=== PATIENT | male | born 2005 | race Caucasian/White ===

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

== ENCOUNTER 2024-05-02 06:23 | Inpatient (IN) | payer OTHER ==
[~2024-05-02] VITALS: Ht 165.1 cm; Wt 47.0 kg
[~2024-05-02 06:23] MED LIST changes: +AMOCLA875 PO; +STELARA90 MG/1 ML SQ
[2024-05-02 09:18] LABS: BASOPHILS ABSOLUTE AUTO 0.01 K/mm3 (0.00-0.23); BASOPHILS PERCENT AUTO 0 % (0-2); EOSINOPHILS ABSOLUTE AUTO 0.12 K/mm3 (0.00-0.68); EOSINOPHILS PERCENT AUTO 1 % (0-6); Hematocrit 28.5 % (37.0-53.0); Hemoglobin 8.6 g/dL (13.5-17.5); IMMATURE GRAN ABSOLUTE AUTO 0.09 K/mm3 (0.00-0.10); IMMATURE GRAN PERCENT AUTO 1 % (0-1); LYMPHOCYTES ABSOLUTE AUTO 0.33 K/mm3 (0.84-5.20); LYMPHOCYTES PERCENT AUTO 4 % (21-46); MONOCYTES ABSOLUTE AUTO 0.98 K/mm3 (0.16-1.47); MONOCYTES PERCENT AUTO 11 % (4-13); Mean Corpuscular HGB 19.3 pg (26.0-34.0); Mean Corpuscular HGB Conc 30.2 g/dL (31.5-36.5); Mean Corpuscular Volume 64 fL (80-100); Mean Platelet Volume 8.2 fL (9.1-12.4); NEUTROPHILS ABSOLUTE AUTO 7.66 K/mm3 (1.96-9.15); NEUTROPHILS PERCENT AUTO 83 % (41-73); Platelet Count 349 K/mm3 (150-400); RDW Coefficient Variation 19.1 % (11.7-14.2); RDW Standard Deviation 42.3 fL (35.1-46.3); Red Blood Cell Count 4.46 M/mm3 (4.30-5.90); White Blood Cell Count 9.19 K/mm3 (4.00-11.30)
[2024-05-02] MEDS ORDERED: MetroNIDAZOLE 500MG/NS 100 ml 100 ML IV ONE (09:20)
[2024-05-02] MEDS ORDERED: CefTRIAXone Sodium 1,000 MG in NS 100 ML IV ONE (09:20)
[2024-05-02 09:40] LABS: Albumin, Blood 1.8 g/dL (3.4-5.0); Albumin/Globulin Ratio 0.4 (0.8-1.8); Bilirubin, Total 0.3 mg/dL (0.1-1.0); Bun/Creatinine Ratio 15.9 (12.0-20.0); Calcium, Blood 7.8 mg/dL (8.5-10.1); Creatinine, Blood 0.5 mg/dL (0.60-1.20); Globulin, Blood 4.9 g/dL (2.2-4.0); Potassium, Blood 3.2 mmol/L (3.5-5.5); Total Protein, Blood 6.7 g/dL (6.4-8.2)
[2024-05-02 11:01] LABS: Chlamydia Trachomatis Urine NOT DETECTED (NOT DETECT); Neisseria Gonorrhoea Urine NOT DETECTED (NOT DETECT)
[2024-05-02] MEDS ORDERED: Ondansetron HCl 2 MG / ML 2ML Vial IV ONE (11:05)
[2024-05-02] MEDS ORDERED: HYDROmorphone HCl/Pf 1MG SYR IV ONE (11:05)
[2024-05-02] MEDS ORDERED: FLU VACC TS2024-25(6MOS UP)/PF 45 MCG/0.5 ML SYRINGE IM SCH (13:20)
[2024-05-02] MEDS ORDERED: OxyCODONE HCL 5 MG TAB PO PRN ×2 (14:25→20:00)
[2024-05-02] MEDS ORDERED: Acetaminophen 500 MG Tab PO PRN (14:25)
[2024-05-02] MEDS ORDERED: NS 250 ML IV PRN (14:55)
[2024-05-02] MEDS ORDERED: Piperacillin/Tazobactam Sod 3.375 GM in NS 100 ML IV SCH ×2 (15:00→22:30)
[2024-05-02 15:25] VITALS: BP 116/80
--- NOTE | 2024-05-02 15:57 | NUR ---
ARRIVAL PT ARRIVED TO UNIT FROM ER VIA WHEELCHAIR. ABLE TO STAND AND TRANSFER TO BED. AMBULATES TO RESTROOM. PT REPORTS PAIN WITH URINATION PRIMARILY ON LEFT SIDE OF SCROTUM AND PAIN WITH STANDING THAT DECREASES ONCE LAYING DOWN. SCROTUM RED ON ASSESSMENT WITH LARGE LUMP IN THE MIDDLE BETWEEN TESTICLES. VERY PAINFUL TO TOUCH. NO OPEN WOUNDS OR SORES SEEN. PT HAS A PEG TUBE TO RUQ, PT STATES HE DOES TUBE FEEDS REGULARILY BUT MANAGES HIMSELF AND WILL SKIP OCCASIONALY. LUNGS CLEAR T/O. NO SOB OR CP. DENIES ANY OTHER COMPLAINTS BESIDES THE CELLULITUS. IV ABX INFUSING PER EMAR.
--- NOTE | 2024-05-02 17:27 | NUR ---
NO ACUTE CHANGES SINCE ARRIVAL TO UNIT PT TOLERATING SOME PO INTAKE. PAINFUL WITH STANDING AND SOME URINATION BUT PAIN RECEDES AND PT REPORTS PAIN TOLERABLE. IV ABX INFUSING PER EMAR. RESTING IN BED.
[2024-05-02 19:20] VITALS: BP 103/65
[2024-05-02] MEDS ORDERED: FentaNYL Citrate 50 MCG/ML 2 ML Injection IV PRN (20:00)
[2024-05-02] MEDS ORDERED: Lactobacil 2-S.Thermo-Bifido 1 1 Cap PO SCH (21:00)
--- NOTE | 2024-05-03 04:48 | NUR ---
NOC SUMMARY- PT PAIN MANAGED WELL. PT SWELLING HAS NOT CHANGED. PT ABLE TO SLEEP. PT DID WAKE UP SOAKED WITH SWEAT. PT WAS FOUND TO BE AFEBRILE. PT REPORTS THAT HE SWEATS WHEN HE TAKES TYLENOL. PT IS VOIDING WITH SOME DISCOMFORT. PT CURRENTLY SLEEPING IN NO DISTRESS. CALL LIGHT IN REACH.
--- NOTE | 2024-05-03 04:51 | NUR ---
0500- NO DRAINAGE NOTED FROM GROIN.
[2024-05-03 05:30] VITALS: BP 105/68
[2024-05-03 05:51] LABS: Hematocrit 30.7 % (37.0-53.0); Hemoglobin 8.7 g/dL (13.5-17.5); Mean Corpuscular HGB 18.9 pg (26.0-34.0); Mean Corpuscular HGB Conc 28.3 g/dL (31.5-36.5); Mean Corpuscular Volume 67 fL (80-100); Mean Platelet Volume 8.5 fL (9.1-12.4); Platelet Count 346 K/mm3 (150-400); RDW Coefficient Variation 19.6 % (11.7-14.2); RDW Standard Deviation 45.6 fL (35.1-46.3); White Blood Cell Count 8.81 K/mm3 (4.00-11.30)
[2024-05-03 06:12] LABS: International Normalized Ratio 1.09; Prothrombin Time Results 11.6 Sec (9.7-11.5)
[2024-05-03 06:24] LABS: BAND PERCENT MAN 33 % (0-8); BASOPHILS PERCENT MAN 0 % (0-2); EOSINOPHILS ABSOLUTE MAN 0.26 K/mm3 (0.00-0.68); EOSINOPHILS PERCENT MAN 3 % (0-6); LYMPHOCYTES ABSOLUTE MAN 0.17 K/mm3 (0.84-5.20); LYMPHOCYTES PERCENT MAN 2 % (21-46); METAMYELOCYTE ABSOLUTE MAN 0.08 K/mm3 (0.00-0.00); METAMYELOCYTE PERCENT MAN 1 % (0-0); MONOCYTES PERCENT MAN 8 % (4-13); MYELOCYTE ABSOLUTE MAN 0.08 K/mm3 (0.00-0.00); MYELOCYTE PERCENT MAN 1 % (0-0); NEUTROPHILS ABSOLUTE MAN 7.48 K/mm3 (1.96-9.15); SEG NEUTROPHILS PERCENT MAN 52 % (41-73); TOTAL CELLS COUNTED 100
[2024-05-03 06:26] LABS: Albumin, Blood 1.8 g/dL (3.4-5.0); Albumin/Globulin Ratio 0.3 (0.8-1.8); Bilirubin, Total 0.3 mg/dL (0.1-1.0); Bun/Creatinine Ratio 9.3 (12.0-20.0); Calcium, Blood 8.6 mg/dL (8.5-10.1); Creatinine, Blood 0.54 mg/dL (0.60-1.20); Globulin, Blood 5.2 g/dL (2.2-4.0); Magnesium, Blood 2.2 mg/dL (1.6-2.4); Phosphorus, Blood 4.5 mg/dL (2.5-4.9); Potassium, Blood 3.2 mmol/L (3.5-5.5)
[2024-05-03 07:49] VITALS: BP 100/58
[2024-05-03] MEDS ORDERED: Enoxaparin 40 MG/0.4 ML SYR SC SCH (09:00)
[2024-05-03] MEDS ORDERED: Potassium Chloride 20 MEQ/15 ML UDC PT ONE (14:00)
[2024-05-03] MEDS ORDERED: Magnesium Hydroxide Conc 10 ML UDC PT PRN (14:15)
[2024-05-03] MEDS ORDERED: Docusate Sodium Liquid 100 MG UDC PT PRN (14:15)
[2024-05-03] MEDS ORDERED: Bisacodyl 10 MG Supp PR PRN (14:15)
[2024-05-03 14:47] VITALS: BP 107/67
--- NOTE | 2024-05-03 15:28 | NUR ---
PT's FAMILY TO BRING IN GI FEEDING SUPPLIES.
--- NOTE | 2024-05-03 19:46 | NUR ---
SHIFT SUMMARY FAMILY BROUGHT IN HOME TUBE FEEDING SUPPLIES, INCLUDING PUMP BUT HAS NOT SET UP THE INFUSION. STATES NO INTEREST HE IS EATING FOOD. GROIN/TESTES UNCHANGED FROM BEGINNING OF SHIFT. MIDDAY REPORTED BLOODY OUTPUT AFTER PASSING GAS, TESTES ASSESSED & NO OPEN AREAS NOTED. DISCUSSED w/ HIM & RE STATED THAT HE HAS RECTAL BLEEDING AT X's R/T CROHNS.
[2024-05-03 20:54] VITALS: BP 113/78
[2024-05-03] MEDS ORDERED: Banana Flakes/Tos 1 EA Powder Pack PT SCH (21:00)
[2024-05-03] MEDS ORDERED: Lactated Ringer's 1,000 ML IV SCH (21:55)
[2024-05-04 03:10] VITALS: BP 110/70
--- NOTE | 2024-05-04 04:29 | NUR ---
SHIFT SUMMARY ROXY WAS ALERT AND FULLY ORIENTED ON ASSESMENT AND INDEPENDENT IN ROOM. PT SCROTUM APPEARING SWOLLEN, BUT REDNESS IS GREATLY REDUCED FROM WHAT WAS REPORTED. PT ATTEMPTED TO CHANGE HIS OWN GTUBE THIS SHIFT, BUT WAS UNABLE TO WITHDRAW HIS TUBE. IMAGING ORDERED TO RULE OUT COMPLICATIONS, VERBAL ORDER TO REFRAIN FROM USING G TUBE AT THIS TIME. NO ACUTE EVENTS TONIGHT, PAIN CONTROLLED MODERATELY WELL. NO NOTED CHANGES TO PT CONDITION.
[2024-05-04 04:47] LABS: Hematocrit 25.6 % (37.0-53.0); Hemoglobin 7.5 g/dL (13.5-17.5); Mean Corpuscular HGB 19.1 pg (26.0-34.0); Mean Corpuscular HGB Conc 29.3 g/dL (31.5-36.5); Mean Corpuscular Volume 65 fL (80-100); Mean Platelet Volume 8.3 fL (9.1-12.4); Platelet Count 309 K/mm3 (150-400); RDW Coefficient Variation 18.9 % (11.7-14.2); RDW Standard Deviation 43.8 fL (35.1-46.3); Red Blood Cell Count 3.92 M/mm3 (4.30-5.90); White Blood Cell Count 9.38 K/mm3 (4.00-11.30)
[2024-05-04 05:13] LABS: Albumin, Blood 1.4 g/dL (3.4-5.0); Anion Gap 11 mmol/L (3-11); Blood Urea Nitrogen 4 mg/dL (8-21); Bun/Creatinine Ratio 7.2 (12.0-20.0); CO2, Blood 23 mmol/L (21-32); Calcium, Blood 7.5 mg/dL (8.5-10.1); Chloride, Blood 105 mmol/L (98-108); Creatinine, Blood 0.56 mg/dL (0.60-1.20); Glomerular Filtration Rate 146 (60-); Glucose, Blood 109 mg/dL (70-99); Magnesium, Blood 1.7 mg/dL (1.6-2.4); Phosphorus, Blood 2.8 mg/dL (2.5-4.9); Potassium, Blood 3.3 mmol/L (3.5-5.5); Sodium, Blood 136 mmol/L (136-145)
[2024-05-04 05:24] LABS: BAND PERCENT MAN 21 % (0-8); BASOPHILS PERCENT MAN 0 % (0-2); EOSINOPHILS ABSOLUTE MAN 0.28 K/mm3 (0.00-0.68); EOSINOPHILS PERCENT MAN 3 % (0-6); METAMYELOCYTE ABSOLUTE MAN 0.09 K/mm3 (0.00-0.00); METAMYELOCYTE PERCENT MAN 1 % (0-0); MONOCYTES ABSOLUTE MAN 0.84 K/mm3 (0.16-1.47); MONOCYTES PERCENT MAN 9 % (4-13); NEUTROPHILS ABSOLUTE MAN 8.16 K/mm3 (1.96-9.15); SEG NEUTROPHILS PERCENT MAN 66 % (41-73); TOTAL CELLS COUNTED 100
[2024-05-04 07:56] VITALS: BP 111/65
--- NOTE | 2024-05-04 11:46 | NUR ---
DR BLOCK IN TO SEE PT STATED NOT GOING TO CHANGE G TUBE. PT STATED DOES NOT FEEL COMFORTABLE USING IT UNTIL A DR DISCUSSES HIS XR WITH HIM AND G TUBE IS CHANGED OUT. NOTIFIED DR TAPIA.
[2024-05-04] MEDS ORDERED: Potassium Phos/Sodium Phos 250 MG PACK PO SCH (13:00)
[2024-05-04] MEDS ORDERED: Potassium Chloride 20 MEQ/15 ML UDC PO ONE (13:00)
[2024-05-04 15:43] VITALS: BP 105/60
--- NOTE | 2024-05-04 17:54 | NUR ---
SUMMARY PT'S GROIN CONTINUES TO BE RED AND EDEMATOUS. MEDICATED THIS AFTERNOON FOR PAIN. PT HAD ORAL TEMP OF 101.6 THIS AFTERNOON, MEDICATED PER ORDERS W/TYLENOL. PT TAKING SMALL AMOUNTS OF PO INTAKE. GETS UP TO BATHROOM INDEPENDENTLY. PT WAS RELUCTANT TO USE G TUBE UNTIL DR TAPIA CAME AND SPOKE TO HIM THIS EVENING. STATED WILLING TO TRY AT HALF RATE. CURRENTLY IN CT.
[2024-05-04 19:41] VITALS: BP 116/68
[2024-05-05] VITALS (17 sets, daily range): BP systolic 84–114; BP diastolic 46–81
--- NOTE | 2024-05-05 04:33 | NUR ---
SHIFT SUMMARY ROXY WAS ALERT AND FULLY ORIENTED ON ASSESMENT. PT LETHARGIC AND FLAT. PAIN MODERATELY WELL CONTROLLED. SCROTUM APPEARS TO BE THE SAME SIZE PREVIOUS NOC, REDNESS INCREASED FROM PREV NOC. DR TAPIA DISCUSSED IMAGING RESULTS WITH PT AND INFORMED HIM OF SCROTAL ABSCESS, AND PUT IN SURGICAL CONSULT. PT KEPT NPO FROM MIDNIGHT. NO ACUTE EVENTS. NO OTHER NOTED CHANGES TO PT CONDITION.
[2024-05-05 05:22] LABS: BASOPHILS ABSOLUTE AUTO 0.02 K/mm3 (0.00-0.23); BASOPHILS PERCENT AUTO 0 % (0-2); EOSINOPHILS ABSOLUTE AUTO 0.26 K/mm3 (0.00-0.68); EOSINOPHILS PERCENT AUTO 3 % (0-6); Hematocrit 27.9 % (37.0-53.0); Hemoglobin 7.7 g/dL (13.5-17.5); IMMATURE GRAN ABSOLUTE AUTO 0.08 K/mm3 (0.00-0.10); IMMATURE GRAN PERCENT AUTO 1 % (0-1); LYMPHOCYTES ABSOLUTE AUTO 0.33 K/mm3 (0.84-5.20); LYMPHOCYTES PERCENT AUTO 3 % (21-46); MONOCYTES PERCENT AUTO 8 % (4-13); Mean Corpuscular HGB 18.9 pg (26.0-34.0); Mean Corpuscular HGB Conc 27.6 g/dL (31.5-36.5); Mean Corpuscular Volume 69 fL (80-100); Mean Platelet Volume 8.8 fL (9.1-12.4); NEUTROPHILS ABSOLUTE AUTO 8.56 K/mm3 (1.96-9.15); NEUTROPHILS PERCENT AUTO 85 % (41-73); Platelet Count 316 K/mm3 (150-400); RDW Coefficient Variation 19.6 % (11.7-14.2); RDW Standard Deviation 47.8 fL (35.1-46.3); Red Blood Cell Count 4.07 M/mm3 (4.30-5.90); White Blood Cell Count 10.05 K/mm3 (4.00-11.30)
[2024-05-05 05:48] LABS: Albumin, Blood 1.4 g/dL (3.4-5.0); Anion Gap 12 mmol/L (3-11); Blood Urea Nitrogen 3 mg/dL (8-21); Bun/Creatinine Ratio 5.4 (12.0-20.0); CO2, Blood 22 mmol/L (21-32); Calcium, Blood 7.7 mg/dL (8.5-10.1); Chloride, Blood 108 mmol/L (98-108); Creatinine, Blood 0.56 mg/dL (0.60-1.20); Ferritin, Serum 106 ng/mL (26-388); Glomerular Filtration Rate 146 (60-); Glucose, Blood 83 mg/dL (70-99); Iron Serum 23 ug/dL (65-175); Phosphorus, Blood 3.3 mg/dL (2.5-4.9); Potassium, Blood 3.7 mmol/L (3.5-5.5); Sodium, Blood 138 mmol/L (136-145); Total Iron Binding Capacity 287 ug/dL (250-450)
[2024-05-05] MEDS ORDERED: Lactated Ringer's 1,000 ML IV SCH (09:10)
[2024-05-05] MEDS ORDERED: Bupivacaine 0.5% HCl 5 MG/ML 30MLVIAL ONE (09:16)
[2024-05-05] MEDS ORDERED: FentaNYL Citrate 50 MCG/ML 2 ML Injection ONE ×2 (09:19→10:02)
[2024-05-05] MEDS ORDERED: Midazolam HCl 1MG / ML 2ML Vial ONE (09:19)
[2024-05-05] MEDS ORDERED: propofoL 20 ML IV ONE (09:19)
[2024-05-05] MEDS ORDERED: Ondansetron HCl 2 MG / ML 2ML Vial ONE (09:46)
[2024-05-05] MEDS ORDERED: Dexamethasone Sod Phos 10 MG/ML 1ML VIAL ONE (09:46)
[2024-05-05] MEDS ORDERED: Rocuronium Bromide 10 MG/ML 5ML Injection IV ONE (09:46)
[2024-05-05] MEDS ORDERED: Sugammadex Sodium 200 MG/2ML SDV (100 MG/ML) ONE (10:00)
[2024-05-05] MEDS ORDERED: HYDROmorphone HCl/Pf 1MG SYR ONE (10:05)
--- NOTE | 2024-05-05 10:22 | NUR ---
05/05/24 1022 Iman Alejandro PT ON SCHEDULED ANTIBIOTICS.
--- NOTE | 2024-05-05 17:19 | NUR ---
PATIENT IS ALERT AND ORIENTED AND COOPERATIVE WITH CARE. POD 0 OF I&D FOR PERINEAL ABSCESS AND G TUBE REPLACEMENT. PATIENT IS ON RA, POST OP VITALS ARE STABLE. PATIENT ATE LUNCH. HE HAD VISITORS AT THE BEDSIDE FOLLOWING SURGERY. REPORTS IMPROVED PAIN IN HIS SCROTUM FOLLOWING I&D. PLANS TO RESUME HOME TUBE FEEDINGS AT 25 ML/HR THIS EVENING AFTER DINNER AND TO RESUME BANATROL VIA G TUBE TOMORROW. KENAN DRAINS ARE DRAINING A MODERATE AMOUNT OF SEROSANGUINOUS FLUID. ABD PAD AND GAUZE IN PLACE, THE PATIENT IS CHANGING THE GAUZE NEEDED. IND TO THE BATHROOM. WILL CONTINUE TO MONITOR
[2024-05-06 04:05] VITALS: BP 104/71
[2024-05-06 06:08] LABS: BASOPHILS ABSOLUTE AUTO 0.01 K/mm3 (0.00-0.23); BASOPHILS PERCENT AUTO 0 % (0-2); EOSINOPHILS ABSOLUTE AUTO 0.01 K/mm3 (0.00-0.68); EOSINOPHILS PERCENT AUTO 0 % (0-6); Hematocrit 29.1 % (37.0-53.0); Hemoglobin 8.4 g/dL (13.5-17.5); IMMATURE GRAN PERCENT AUTO 1 % (0-1); LYMPHOCYTES ABSOLUTE AUTO 0.32 K/mm3 (0.84-5.20); LYMPHOCYTES PERCENT AUTO 4 % (21-46); MONOCYTES ABSOLUTE AUTO 0.76 K/mm3 (0.16-1.47); MONOCYTES PERCENT AUTO 10 % (4-13); Mean Corpuscular HGB 19.2 pg (26.0-34.0); Mean Corpuscular HGB Conc 28.9 g/dL (31.5-36.5); Mean Corpuscular Volume 66 fL (80-100); Mean Platelet Volume 8.7 fL (9.1-12.4); NEUTROPHILS ABSOLUTE AUTO 6.53 K/mm3 (1.96-9.15); NEUTROPHILS PERCENT AUTO 85 % (41-73); Platelet Count 379 K/mm3 (150-400); RDW Coefficient Variation 19.9 % (11.7-14.2); RDW Standard Deviation 46.1 fL (35.1-46.3); Red Blood Cell Count 4.38 M/mm3 (4.30-5.90); White Blood Cell Count 7.73 K/mm3 (4.00-11.30)
[2024-05-06 06:35] LABS: Albumin, Blood 1.5 g/dL (3.4-5.0); Anion Gap 10 mmol/L (3-11); Blood Urea Nitrogen 6 mg/dL (8-21); Bun/Creatinine Ratio 12.5 (12.0-20.0); CO2, Blood 26 mmol/L (21-32); Calcium, Blood 8.1 mg/dL (8.5-10.1); Chloride, Blood 111 mmol/L (98-108); Creatinine, Blood 0.48 mg/dL (0.60-1.20); Glomerular Filtration Rate 153 (60-); Glucose, Blood 134 mg/dL (70-99); Magnesium, Blood 2.2 mg/dL (1.6-2.4); Phosphorus, Blood 3.2 mg/dL (2.5-4.9); Potassium, Blood 3.7 mmol/L (3.5-5.5); Sodium, Blood 143 mmol/L (136-145)
[2024-05-06 07:12] VITALS: BP 97/64
--- NOTE | 2024-05-06 07:56 | NUR ---
SHIFT SUMMARY NOC. PT POD 1 FOR I&D OF SCROTAL ABCESS AND REPLACEMENT OF G TUBE. PT MEDICATED FOR PAIN X1 WITH 500MG OF TYLENOL PER PT REQUEST. PIN MARCIANO DRAIN PRODUCING SEROSANG DRAINAGE. EDUCATION PROVIDED REGARDING CLEANLINESS R/T TO CLOSENESS OF DRAIN TO RECTUM. PT TOLERATING ORAL INTAKE. PT CALLS APPROPRIATELY. CALL LIGHT IN REACH.
[2024-05-06] MEDS ORDERED: Potassium Chloride 20 MEQ/15 ML UDC PT ONE (14:00)
[2024-05-06 15:06] VITALS: BP 98/67
[2024-05-06] MEDS ORDERED: Sod Ferric Gluc Complx/Sucrose 125 MG in NS 100 ML IV SCH (18:00)
[2024-05-06 19:32] VITALS: BP 104/73
--- NOTE | 2024-05-06 20:03 | NUR ---
SHIFT SUMMARY TUBE FEEDING STARTED TODAY AROUND 1100 RUNNING AT 25ML/HR, HE IS ABLE TO TOLERATE THIS WELL, DRAINAGE SITE ON HIS SCROTUM CONTINUES TO DRAIN, HE IS ABLE TO CHANGE OUT THE GAUZE INDEPENDENTLY AND CHANGES HIS MESH UNDERWEAR NEEDED. ABLE TO MAKE NEEDS KNOWN, PAIN INCREASED A BIT TODAY PER HIS EMAR BUT HAS BEEN ABLE TO BE KEPT TOLERABLE. NO ACUT EVENTS THIS SHIFT, CALL LIGHT IN REACH.
[2024-05-07 05:17] VITALS: BP 109/72
[2024-05-07 05:27] LABS: BASOPHILS ABSOLUTE AUTO 0.02 K/mm3 (0.00-0.23); BASOPHILS PERCENT AUTO 0 % (0-2); EOSINOPHILS ABSOLUTE AUTO 0.15 K/mm3 (0.00-0.68); EOSINOPHILS PERCENT AUTO 2 % (0-6); Hematocrit 27.3 % (37.0-53.0); Hemoglobin 7.8 g/dL (13.5-17.5); IMMATURE GRAN ABSOLUTE AUTO 0.34 K/mm3 (0.00-0.10); IMMATURE GRAN PERCENT AUTO 5 % (0-1); LYMPHOCYTES ABSOLUTE AUTO 0.41 K/mm3 (0.84-5.20); LYMPHOCYTES PERCENT AUTO 6 % (21-46); MONOCYTES ABSOLUTE AUTO 0.62 K/mm3 (0.16-1.47); MONOCYTES PERCENT AUTO 9 % (4-13); Mean Corpuscular HGB 19.3 pg (26.0-34.0); Mean Corpuscular HGB Conc 28.6 g/dL (31.5-36.5); Mean Corpuscular Volume 67 fL (80-100); Mean Platelet Volume 8.1 fL (9.1-12.4); NEUTROPHILS ABSOLUTE AUTO 5.13 K/mm3 (1.96-9.15); NEUTROPHILS PERCENT AUTO 77 % (41-73); Platelet Count 347 K/mm3 (150-400); RDW Coefficient Variation 19.9 % (11.7-14.2); RDW Standard Deviation 47.7 fL (35.1-46.3); Red Blood Cell Count 4.05 M/mm3 (4.30-5.90); White Blood Cell Count 6.67 K/mm3 (4.00-11.30)
--- NOTE | 2024-05-07 06:21 | NUR ---
SHIFT SUMMARY NOC. PT POD 2 FOR I&D OF SCROTAL ABSCESS AND REPLACEMENT OF G TUBE. PT MEDICATED FOR PAIN WITH OXY THIS SHIFT WITH REPORTED RELIEF OF SX. PIN MARCIANO DRAIN PRODUCING SEROSANG DRAINAGE. PT CHANGES DRESSINGS INDEPENDENTLY. PT'S TUBE FEEDING RUNNING AT 35ML/HR, PT IS TOLERATING WELL AND DENIES N/V. PT TOLERATING ORAL INTAKE. CALL LIGHT IN REACH.
[2024-05-07 06:27] LABS: Albumin, Blood 1.6 g/dL (3.4-5.0); Anion Gap 10 mmol/L (3-11); Blood Urea Nitrogen 5 mg/dL (8-21); Bun/Creatinine Ratio 7.6 (12.0-20.0); CO2, Blood 26 mmol/L (21-32); Calcium, Blood 7.7 mg/dL (8.5-10.1); Chloride, Blood 108 mmol/L (98-108); Creatinine, Blood 0.66 mg/dL (0.60-1.20); Glomerular Filtration Rate 139 (60-); Glucose, Blood 89 mg/dL (70-99); Magnesium, Blood 1.9 mg/dL (1.6-2.4); Phosphorus, Blood 2.9 mg/dL (2.5-4.9); Potassium, Blood 3.8 mmol/L (3.5-5.5); Sodium, Blood 140 mmol/L (136-145)
[2024-05-07 07:42] VITALS: BP 103/72
[2024-05-07] MEDS ORDERED: Potassium Chloride 20 MEQ/15 ML UDC PT ONE (15:00)
[2024-05-07 15:44] VITALS: BP 103/66
--- NOTE | 2024-05-07 17:58 | NUR ---
SHIFT SUMMARY POD2 SCROTAL/PERINEAL I&D, A/OX4, VSS, TOLERATING PO, FEED RATE ADJUSTED THIS AM TO MEET HIS GOAL RATE OF 50ML/HR AND HE TOLERATED IT ALL DAY TODAY, PAIN MANAGED PER EMAR AND APPEARS TO HAVE IMPROVED HE HAD LESS PAIN MEDICATIONS TODAY. HE IS STILL CHANGING THE GAUZE DRESSING ON THE BASE OF HIS SCROTUM INDEPENDENTLY, INDEPENDENT IN THE ROOM, HE IS STILL FLAT BUT A BIT MORE TALKATIVE TODAY. NO ACUTE EVENTS, CALL LIGHT IN REACH.
[2024-05-07 18:33] VITALS: BP 104/67
[2024-05-07 20:56] VITALS: BP 109/69
[2024-05-08 02:14] VITALS: BP 116/75
--- NOTE | 2024-05-08 05:21 | NUR ---
TUBE FEEDING STOPPED AT 0500. PER ORDER, FEEDS TO RUN 20 HRS PER DAY. PT TOLERATED 50ML/HR FEED. DENIES NAUSEA OR VOMITING. FEED TO RESUME AT 0900 TODAY, PT AWARE OF PLAN.
[2024-05-08 07:28] VITALS: BP 107/72
--- NOTE | 2024-05-08 07:46 | NUR ---
SHIFT SUMMARY NOC. PT POD 3 FOR I&D OF PERINEAL ABSCESS AND REPLACEMENT OF G TUBE. PT REPORTS PAIN TOLERABLE AT 2/10 FOR PAIN AND DECLINES PAIN MEDS MULTIPLE TIMES. KENAN DRAIN PRODUCING SEROSAG DRAINAGE THAT CONTINUES TO DECREASE SINCE THIS RN'S LAST ASSESSMENTS. PT TOLERATING MINIMAL PO INTAKE. G TUBE AT REST, SEE PREVIOUS NOTE REGARDING TUBE FEEDING. MAKES NEEDS KNOWN CALL LIGHT IN REACH.
--- NOTE | 2024-05-08 09:09 | NUR ---
Tube feeding started at 0900, 50 mL/hr, flush set to 30mL Q4 hrs. Dipika Wooten professor of nursing was present when Tube feeding was started.
--- NOTE | 2024-05-08 09:30 | NUR ---
Tube Feeding was stopped at 0905 per Patients request to take a shower.
--- NOTE | 2024-05-08 10:01 | NUR ---
Tube Feeding restrated at 0945.
[2024-05-08 14:47] VITALS: BP 101/64
--- NOTE | 2024-05-08 19:26 | NUR ---
SHIFT SUMMARY PT IS POD#3 FROM I&D OF PERINEAL ABSCESS, KENAN DRAIN IN PLACE. PAIN MANAGED WITH OXYCODONE. PT IS TOLERATING SMALL AMOUNTS OF PO AND IS ALSO GETTING NUTRITION FROM HIS PEG TUBE. PT IS INDEPENDENT IN THE ROOM. PT IS GETTING IV ABX. PT USES CALL LIGHT APPROPRIATELY.
[2024-05-09 03:41] VITALS: BP 106/69
[2024-05-09 05:01] LABS: Hematocrit 28.8 % (37.0-53.0); Hemoglobin 8.2 g/dL (13.5-17.5); Mean Corpuscular HGB 19.3 pg (26.0-34.0); Mean Corpuscular HGB Conc 28.5 g/dL (31.5-36.5); Mean Corpuscular Volume 68 fL (80-100); Mean Platelet Volume 8.6 fL (9.1-12.4); NRBC ABSOLUTE 0.05 K/mm3 (0.00-0.02); NRBC Auto 0.6 /100 WBC (0.0-0.2); Platelet Count 392 K/mm3 (150-400); RDW Coefficient Variation 20.3 % (11.7-14.2); RDW Standard Deviation 47.5 fL (35.1-46.3); Red Blood Cell Count 4.24 M/mm3 (4.30-5.90); White Blood Cell Count 8.88 K/mm3 (4.00-11.30)
[2024-05-09 05:26] LABS: BAND PERCENT MAN 7 % (0-8); BASOPHILS ABSOLUTE MAN 0.08 K/mm3 (0.00-0.23); BASOPHILS PERCENT MAN 1 % (0-2); EOSINOPHILS ABSOLUTE MAN 0.44 K/mm3 (0.00-0.68); EOSINOPHILS PERCENT MAN 5 % (0-6); LYMPHOCYTES ABSOLUTE MAN 0.53 K/mm3 (0.84-5.20); LYMPHOCYTES PERCENT MAN 6 % (21-46); METAMYELOCYTE ABSOLUTE MAN 0.08 K/mm3 (0.00-0.00); METAMYELOCYTE PERCENT MAN 1 % (0-0); MONOCYTES ABSOLUTE MAN 0.44 K/mm3 (0.16-1.47); MONOCYTES PERCENT MAN 5 % (4-13); NEUTROPHILS ABSOLUTE MAN 7.28 K/mm3 (1.96-9.15); SEG NEUTROPHILS PERCENT MAN 75 % (41-73); TOTAL CELLS COUNTED 100
--- NOTE | 2024-05-09 05:30 | NUR ---
SHIFT SUMMARY POD 4 PERINEAL I&D & G TUBE REPLACEMENT. NO ACUTE CHANGES OVERNIGHT. VSS. TOLERATING REG DIET. DENIES N/V. TUBE FEED PER ORDERS @ 50ML/HR, STOPPED @ 0500, PT TOLERATING WELL. IV ABX INFUSING PER EMAR. VOIDING. PT REPORTS PAIN TOLERABLE, MEDICATED PER EMAR. SCROTUM SWELLING DECREASING. KENAN DRAIN c SANG DRAINAGE, 4x4 GAUZE c MESH UNDERGARMENTS TO KEEP DRESSING IN PLACE. CALL LIGHT IN REACH, BED IN LOWEST POSITION, WILL REPORT TO DAY RN.
[2024-05-09 05:42] LABS: Bun/Creatinine Ratio 12.8 (12.0-20.0); Calcium, Blood 8.5 mg/dL (8.5-10.1); Creatinine, Blood 0.47 mg/dL (0.60-1.20); Potassium, Blood 3.7 mmol/L (3.5-5.5)
[2024-05-09 07:14] VITALS: BP 108/66
[2024-05-09] MEDS ORDERED: Zinc Sulfate 220 MG Cap (Provides 50MG) PT SCH (09:00)
--- NOTE | 2024-05-09 10:07 | NUR ---
TUBE FEEDING STARTED AT 1000
--- NOTE | 2024-05-09 12:00 | NUR ---
DR. BLOCK ROUNDED ON PT. WOUND CARE DISCUSSED, DR. BLOCK STATED TO CLEANSE AREA WITH SOAP AND WATER AND CHANGE GAUZE FREQUENTLY. PLAN FOR PT TO DISCHARGE HOME TODAY WITH KENAN DRAIN STILL IN PLACE AND FOLLOW UP WITH DR. BLOCK AT THE WOUND CLINIC IN 1 WEEK.
[2024-05-09] MEDS ORDERED: ACET500 PO (13:24)
[2024-05-09] MEDS ORDERED: AMOCLA875 PO (13:25)
[2024-05-09] MEDS ORDERED: VISBIOME 112.51 EACH PO (13:25)
[2024-05-09 15:06] VITALS: BP 108/67
--- NOTE | 2024-05-09 16:44 | NUR ---
DISCHARGE PT PROVIDED WITH WRITTEN AND VERBAL DISCHARGE INSTRUCTIONS BY MATHIEU TIRADO. PT DISCHARGED HOME AT 1643. PT AMBULATED OUT INDEPENDENTLY. PT EDUCATED HE WILL NEED TO TAKE HIS ANTIBIOTICS TONIGHT. PT STATES HE HAS TRANSPORTATION TO [facility]. THIS RN VERIFIED [facility], THEY ARE OPEN UNTIL 7PM PT NOTIFIED. MATHIEU VILLA RN STATES SHE CALLED PRESCRIPTIONS TO [facility].
== END 2024-05-09 16:43 | disposition home or self-care (01) | DRG 348 ==
LOC: ER 06:23 → SURS 13:17
PROVIDERS: Family Medicine; Physician Assistant; Surgery; ADMIT Family Medicine
PROC: 0D9Q0ZZ Drainage of Anus, Open Approach (ICD-10-PCS; principal; 2024-05-05 09:30)
PROC: 0D20XUZ Change Feeding Device in Upper Intestinal Tract, External Approach (ICD-10-PCS; 2024-05-05 09:30)
DX: K61.0 Anal abscess (principal); D84.9 Immunodeficiency, unspecified; L03.315 Cellulitis of perineum; K50.90 Crohn's disease, unspecified, without complications; L02.215 Cutaneous abscess of perineum; N49.2 Inflammatory disorders of scrotum; E87.6 Hypokalemia; D50.9 Iron deficiency anemia, unspecified; Z91.048 Other nonmedicinal substance allergy status
CPT/HCPCS: 36415; 72193; 74018; 74177; 80048; 80053; 80069; 82728; 83540; 83550; 83735; 84100; 85025; 85610; 87070; 87075; 87205; 87491; 87591; 96365-59; 96367; 96375; 99285-25; A9270; J0696; J1100; J1171; J1650; J2250; J2405; J2543; J2704; J2916; J3010; J7050; J7120; Q9967

== ENCOUNTER 2024-05-17 06:18 | Day surgery (SDC) | payer OTHER ==
[~2024-05-17 06:18] MED LIST changes: +ACET500 PO; +VISBIOME 112.51 EACH PO
[2024-05-17] MEDS ORDERED: Lidocaine HCl 4% Cream 5 GM ONE (14:05)
== END 2024-05-17 23:00 | disposition home or self-care (01) ==
LOC: WOUND 06:18
DX: L02.214 Cutaneous abscess of groin (principal); J45.909 Unspecified asthma, uncomplicated; S31.501D Unspecified open wound of unspecified external genital organs, male, subsequent encounter; K65.1 Peritoneal abscess; T81.31XD Disruption of external operation (surgical) wound, not elsewhere classified, subsequent encounter; Y83.8 Other surgical procedures as the cause of abnormal reaction of the patient, or of later complication, without mention of misadventure at the time of the procedure; Z88.8 Allergy status to other drugs, medicaments and biological substances
CPT/HCPCS: A9270; G0463

== ENCOUNTER 2024-05-24 01:58 | Day surgery (SDC) | payer OTHER | END 2024-05-24 23:00 | disposition home or self-care (01) | LOC: WOUND 01:58 | DX: S31.30XA Unspecified open wound of scrotum and testes, initial encounter (principal); K65.1 Peritoneal abscess; T81.31XA Disruption of external operation (surgical) wound, not elsewhere classified, initial encounter; K50.90 Crohn's disease, unspecified, without complications; X58.XXXA Exposure to other specified factors, initial encounter | CPT/HCPCS: G0463 ==

== ENCOUNTER → 2024-06-07 | Day surgery (SDC) | payer OTHER ==
[~2024-06-07] MED LIST changes: +Lidocaine HCl 4% Cream 5 GM ONE
== END ==
LOC: WOUND 01:12
DX: L02.214 Cutaneous abscess of groin (principal); K50.90 Crohn's disease, unspecified, without complications
CPT/HCPCS: A9270; G0463

== ENCOUNTER 2024-06-14 00:56 | Day surgery (SDC) | payer OTHER ==
[~2024-06-14 00:56] MED LIST changes: -Lidocaine HCl 4% Cream 5 GM ONE
[2024-06-14] MEDS ORDERED: Lidocaine HCl 4% Cream 5 GM ONE (13:02)
== END 2024-06-14 23:00 | disposition home or self-care (01) ==
LOC: WOUND 00:56
DX: L02.214 Cutaneous abscess of groin (principal); S31.501D Unspecified open wound of unspecified external genital organs, male, subsequent encounter; K65.1 Peritoneal abscess; T81.31XD Disruption of external operation (surgical) wound, not elsewhere classified, subsequent encounter; Y83.8 Other surgical procedures as the cause of abnormal reaction of the patient, or of later complication, without mention of misadventure at the time of the procedure; X58.XXXD Exposure to other specified factors, subsequent encounter
CPT/HCPCS: A9270; G0463